=== PATIENT | female | born 2005 | race Hispanic/Latino ===

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

== ENCOUNTER 2024-02-23 15:37 | Emergency (ER) | payer MEDICAID, OTHER ==
[~2024-02-23] VITALS: Ht 167.6 cm; Wt 109.3 kg
[~2024-02-23 15:37] MED LIST: IBUP-1493 PO
[2024-02-23] MEDS: DiphenhydrAMINE HCL 50 MG/ML VIAL IV ONE (16:22)
[2024-02-23] MEDS: SOLU-MEDROL 125MG VIAL IVP ONE (16:22)
[2024-02-23] MEDS: FAMOTIDINE 20MG VIAL IV ONE (16:22)
[2024-02-23] MEDS: 0.9%NACL 1000ML 1,000 ML IV ONE (16:23)
[2024-02-23] MEDS ORDERED: FAMO-136 PO (17:08)
[2024-02-23] MEDS ORDERED: DIPH-1242 PO (17:08)
[2024-02-23] MEDS ORDERED: METH4TAB3 PO (17:08)
[2024-02-23] MEDS: KETOROLAC 30MG VIAL (30MG/ML) IVP ONE (17:14)
[2024-02-23 17:20] VITALS: BP 100/64; PULSE 95; RESP 20; O2SAT 98
== END 2024-02-23 17:31 | disposition home or self-care (01) ==
LOC: EDH 15:37
DX: L23.89 Allergic contact dermatitis due to other agents (principal); T63.441A Toxic effect of venom of bees, accidental (unintentional), initial encounter; Y92.89 Other specified places as the place of occurrence of the external cause
CPT/HCPCS: 99284; 96374; 96375; 96361; J1200; J3490; J7030; J2919; J1885

== ENCOUNTER 2024-04-04 22:30 | Emergency (ER) | payer OTHER ==
[~2024-04-04] VITALS: Ht 167.6 cm; Wt 111.6 kg
[~2024-04-04 22:30] MED LIST changes: +DIPH-1242 PO; +FAMO-136 PO; +METH4TAB3 PO
[2024-04-04 22:42] VITALS: BP 150/95; PULSE 86; RESP 18; O2SAT 99
[2024-04-04] MEDS: ACETAMINOPHEN 500 MG TABLET PO ONE (22:58)
[2024-04-04 23:02] LABS: BASOPHILS # (AUTO) 0.06 K/uL (0.00-0.20); BASOPHILS % (AUTO) 0.6 % (0.0-5.0); EOSINOPHILS # (AUTO) 0.07 K/uL (0.00-0.70); EOSINOPHILS % (AUTO) 0.7 % (0.0-8.0); HEMATOCRIT 43.8 % (36-48); IMMATURE GRANULOCYTE ABSOLUTE 0.05 K/uL (0-1); LYMPHOCYTES # (AUTO) 1.2 K/uL (1.0-4.8); LYMPHOCYTES % (AUTO) 11.8 % (21.0-51.0); MEAN CORPUSCULAR HEMOGLOBIN 29.9 pg (27.0-33.0); MEAN CORPUSCULAR HGB CONC 33.3 g/dL (32.0-36.0); MEAN CORPUSCULAR VOLUME 89.6 fL (80-100); MONOCYTES # (AUTO) 0.8 K/uL (0.1-1.0); MONOCYTES % (AUTO) 7.7 % (3.0-13.0); NEUTROPHILS # (AUTO) 8.1 K/uL (1.8-7.7); NEUTROPHILS % (AUTO) 78.7 % (40.0-77.0); PLATELET COUNT (AUTO) 285 K/uL (130-400); RED BLOOD CELL COUNT(AUTO) 4.89 MIL/uL (4.00-5.50); WHITE BLOOD COUNT (AUTO) 10.3 K/uL (4.8-10.8)
[2024-04-04 23:02] LABS: APPEARANCE,URINE CLEAR (CLEAR); BILIRUBIN,URINE NEGATIVE (NEGATIVE); COLOR,URINE LIGHT-YELLOW (YELLOW); GLUCOSE, URINE (UA) NEGATIVE (NEGATIVE); KETONES,URINE NEGATIVE (NEGATIVE); LEUKOCYTE ESTERASE ,URINE 25 Leu/uL (NEGATIVE); NITRATE,URINE NEGATIVE (NEGATIVE); OCCULT BLOOD,URINE NEGATIVE (NEGATIVE); PH,URINE 5.5 (5.0-8.0); PROTEIN,URINE NEGATIVE (NEGATIVE); UROBILINOGEN,URINE 0.2 mg/dL (0.2-1.0)
[2024-04-04 23:05] LABS: ADD UA MICROSCOPIC YES; HCG,QUALITATIVE URINE NEGATIVE (NEGATIVE)
[2024-04-04 23:07] LABS: MUCUS,URINE RARE LPF (None Seen); SQUAMOUS EPITHELIAL CELL,UR MOD /HPF (0-2)
[2024-04-04 23:10] LABS: CREATININE 0.8 mg/dL (0.5-1.0); POTASSIUM 3.8 mmol/L (3.5-5.1)
[2024-04-04 23:14] LABS: ALBUMIN 3.8 g/dL (3.5-5.0); BILIRUBIN,TOTAL 0.4 mg/dL (0.2-1.0); TOTAL PROTEIN, SERUM 7.3 g/dL (6.0-8.3)
[2024-04-04] MEDS ORDERED: PHEN-847 PO (23:26)
[2024-04-04] MEDS ORDERED: AMOX1TAB16 PO (23:26)
[2024-04-04] MEDS ORDERED: IBUP-2077 PO (23:26)
[2024-04-04] MEDS: AMOX/CLAV 875/125MG TAB PO ONE (23:42)
== END 2024-04-04 23:58 | disposition home or self-care (01) ==
LOC: EDH 22:30
DX: N30.01 Acute cystitis with hematuria (principal); Z79.899 Other long term (current) drug therapy; Z90.89 Acquired absence of other organs; Z98.890 Other specified postprocedural states
CPT/HCPCS: 36415; 80053; 81001; 81025; 83690; 85025; 87086

== ENCOUNTER 2024-04-24 01:53 | Emergency (ER) | payer SELFPAY ==
[~2024-04-24] VITALS: Ht 167.6 cm; Wt 99.8 kg
[~2024-04-24 01:53] MED LIST changes: +AMOX1TAB16 PO; +IBUP-2077 PO; +PHEN-847 PO
[2024-04-24 02:16] LABS: APPEARANCE,URINE CLEAR (CLEAR); BILIRUBIN,URINE NEGATIVE (NEGATIVE); COLOR,URINE LIGHT-YELLOW (YELLOW); GLUCOSE, URINE (UA) NEGATIVE (NEGATIVE); KETONES,URINE NEGATIVE (NEGATIVE); LEUKOCYTE ESTERASE ,URINE 25 Leu/uL (NEGATIVE); NITRATE,URINE NEGATIVE (NEGATIVE); OCCULT BLOOD,URINE NEGATIVE (NEGATIVE); PH,URINE 5.5 (5.0-8.0); PROTEIN,URINE NEGATIVE (NEGATIVE); UROBILINOGEN,URINE 0.2 mg/dL (0.2-1.0)
[2024-04-24 02:19] LABS: BASOPHILS # (AUTO) 0.04 K/uL (0.00-0.20); BASOPHILS % (AUTO) 0.3 % (0.0-5.0); EOSINOPHILS # (AUTO) 0.09 K/uL (0.00-0.70); EOSINOPHILS % (AUTO) 0.7 % (0.0-8.0); HEMATOCRIT 41.1 % (36-48); IMMATURE GRANULOCYTE ABSOLUTE 0.04 K/uL (0-1); LYMPHOCYTES # (AUTO) 3.3 K/uL (1.0-4.8); LYMPHOCYTES % (AUTO) 25.8 % (21.0-51.0); MEAN CORPUSCULAR HEMOGLOBIN 29.9 pg (27.0-33.0); MEAN CORPUSCULAR HGB CONC 33.8 g/dL (32.0-36.0); MEAN CORPUSCULAR VOLUME 88.4 fL (80-100); MONOCYTES # (AUTO) 0.7 K/uL (0.1-1.0); MONOCYTES % (AUTO) 5.7 % (3.0-13.0); NEUTROPHILS # (AUTO) 8.7 K/uL (1.8-7.7); NEUTROPHILS % (AUTO) 67.2 % (40.0-77.0); PLATELET COUNT (AUTO) 362 K/uL (130-400); RED BLOOD CELL COUNT(AUTO) 4.65 MIL/uL (4.00-5.50); WHITE BLOOD COUNT (AUTO) 12.9 K/uL (4.8-10.8)
[2024-04-24 02:21] LABS: ADD UA MICROSCOPIC YES
[2024-04-24 02:22] LABS: BACTERIA,URINE None Seen /HPF (None Seen); HCG,QUALITATIVE URINE NEGATIVE (NEGATIVE); SQUAMOUS EPITHELIAL CELL,UR Few /HPF (0-2)
[2024-04-24] MEDS: 0.9%NACL 1000ML 1,000 ML IV ONE (02:29)
[2024-04-24] MEDS: acetaMINOPHEN 500 MG TABLET PO ONE (02:30)
[2024-04-24 02:39] LABS: ALBUMIN 3.8 g/dL (3.5-5.0); BILIRUBIN,TOTAL 0.2 mg/dL (0.2-1.0); TOTAL PROTEIN, SERUM 7.5 g/dL (6.0-8.3)
[2024-04-24] MEDS: cefTRIAXone 1G VIAL IVPB ONE (03:23)
[2024-04-24 03:42] VITALS: BP 139/68; PULSE 73; RESP 16; O2SAT 98
== END 2024-04-24 03:54 | disposition home or self-care (01) ==
LOC: EDH 01:53
DX: O03.9 Complete or unspecified spontaneous abortion without complication (principal); R10.2 Pelvic and perineal pain; Z79.899 Other long term (current) drug therapy; Z3A.01 Less than 8 weeks gestation of pregnancy
CPT/HCPCS: 99283; 96374; 96361; 80053; 84702; 83690; 85025; 87086; 81001; 81025; 36415; J7030; J0696

== ENCOUNTER 2024-07-19 22:16 | Emergency (ER) | payer BC ==
[~2024-07-19] VITALS: Ht 167.6 cm; Wt 113.9 kg
[2024-07-19 23:55] LABS: BASOPHILS # (AUTO) 0.05 K/uL (0.00-0.20); BASOPHILS % (AUTO) 0.4 % (0.0-5.0); EOSINOPHILS % (AUTO) 0.9 % (0.0-8.0); HEMATOCRIT 44.1 % (36-48); IMMATURE GRANULOCYTE ABSOLUTE 0.04 K/uL (0-1); LYMPHOCYTES # (AUTO) 3.2 K/uL (1.0-4.8); LYMPHOCYTES % (AUTO) 27.7 % (21.0-51.0); MEAN CORPUSCULAR HEMOGLOBIN 29.9 pg (27.0-33.0); MEAN CORPUSCULAR HGB CONC 33.1 g/dL (32.0-36.0); MEAN CORPUSCULAR VOLUME 90.4 fL (80-100); MONOCYTES # (AUTO) 0.7 K/uL (0.1-1.0); MONOCYTES % (AUTO) 5.9 % (3.0-13.0); NEUTROPHILS # (AUTO) 7.5 K/uL (1.8-7.7); NEUTROPHILS % (AUTO) 64.8 % (40.0-77.0); PLATELET COUNT (AUTO) 325 K/uL (130-400); RED BLOOD CELL COUNT(AUTO) 4.88 MIL/uL (4.00-5.50); RED CELL DISTRIBUTION WIDTH 11.9 % (11.0-15.5); WHITE BLOOD COUNT (AUTO) 11.5 K/uL (4.8-10.8)
[2024-07-20 00:07] LABS: CREATININE 0.7 mg/dL (0.5-1.0); POTASSIUM 4.2 mmol/L (3.5-5.1)
[2024-07-20 00:11] LABS: BILIRUBIN,DIRECT 0.1 mg/dL (0.0-0.3); BILIRUBIN,TOTAL 0.3 mg/dL (0.2-1.0); TOTAL PROTEIN, SERUM 7.5 g/dL (6.0-8.3)
[2024-07-20] MEDS: ondanSETRON 4MG INJ IVP ONE (00:18)
[2024-07-20] MEDS: morPHINE 4 MG SYG IVP ONE (00:19)
--- NOTE | 2024-07-20 00:53 | ERN ---
ED Note History of Present Illness Stated Complaint: C/O ABD PAIN WITH RT EAR PAIN Chief Complaint: Multiple Complaints Time Seen by MD: 22:53 Time Seen by Midlevel: 22:53 Dictation: The patient is a 19-year-old female with no past medical history who presents to the emergency department with complaints of right ear pain for two days. Denies any fevers or drainage. Patient also reports left upper abdominal pain associated with nausea onset on and off for 3 weeks. Denies any vomiting, constipation, diarrhea. Allergies: Coded Allergies: No Known Drug Allergies (Unverified Allergy, Unknown, 02/26/19) Home Meds Active Scripts Ondansetron (Ondansetron Odt) 4 Mg Tab.rapdis, 4 MG PO Q6HPRN PRN for nausea, #1 6 TAB 0 Refills Prov:SEQUEIRAMARLENY [facility] 07/20/24 Amoxicillin/Potassium Clav (Amox Tr-K Clv 875-125 mg Tab) 875 Mg-125 Mg Tablet, 1 TAB PO BID for 5 Days, #10 TAB 0 Refills Prov:LILLIAN SEQUEIRAP 07/20/24 Ibuprofen (Ibuprofen 800 mg Tab) 800 Mg Tab, 800 MG PO Q8H PRN for fever or pain, #30 TAB 0 Refills Prov:NITA MERINO NP 04/04/24 Phenazopyridine HCl (Pyridium) 200 Mg Tab, 200 MG PO TIDPC, #9 TAB TAKE WITH FOOD TO PREVENT STOMACH UPSET. Prov:NITA MERINO NP 04/04/24 Amoxicillin/Potassium Clav (Amox Tr-K Clv 875-125 mg Tab) 875 Mg-125 Mg Tablet, 1 EACH PO BID for 5 Days, #10 TAB 0 Refills Prov:NITA MERINO NP 04/04/24 Methylprednisolone (Medrol) 4 Mg Tab.ds.pk, 4 MG PO AD, #1 PACK Prov:EDDIE VILCHIS 02/23/24 Famotidine (Pepcid) 20 Mg Tablet, 20 MG PO DAILY for 7 Days, #7 TAB Prov:EDDIE VILCHIS 02/23/24 Diphenhydramine HCl (Benadryl) 25 Mg Cap, 25 MG PO DAILY for 7 Days, #7 CAP Prov:EDDIE VILCHIS 02/23/24 Ibuprofen (Motrin/Advil) 800 Mg Tab, 800 MG PO TID for fever, #30 TAB Prov:MENARAY Macedo MD 03/23/22 Past Medical History Past Medical History: No Pertinent History Surgical History: None Family History: Negative Social History: Negative LMP: Jun 08, 2024 RN Note Reviewed/Agreed w/PFSH: Yes Review of System Dictation Constitutional: Negative for fever,chills, and weight loss Eyes: Negative for injury, pain,redness, and discharge ENT: Negative for injury,pain or swelling. Positive for right ear pain Cardiovascular: Negative for chest pain, palpitations, and edema Respiratory: Negative for shortness of breath, cough, and wheezing, Abdomen/GI: Negative for vomiting, diarrhea, and constipation. Positive for abdominal pain, nausea Back: Negative for injury and pain : Negative for injury, bleeding and discharge MS/Extremity: Negative for injury and deformity Skin: Negative for rash, and discoloration Neuro: Negative for headache, weakness, numbness, tingling, and seizure Psych: Negative for suicide ideation, homicidal ideation, and hallucinations Initial Vital Sign VS Vital Signs Date Time Temp Pulse Resp B/P (MAP) Pulse Ox O2 Delivery O2 Flow Rate FiO2 07/19/24 22:18 97.2 76 20 125/81 99 Room Air 07/20/24 00:04 0 21 Physical Exam Dictation Vital Signs reviewed General Appearance: Alert, oriented x 3, no acute distress, well developed, nourished. Head and Face: non-traumatic. Eyes: PERRL, pink conjunctivas, eyelid no trauma, anterior chamber with arcus senilis. Ears: Pinnas intact and no signs of trauma or erythema ear canals clear and no discharge right tympanic membrane with slight erythema, no drainage fluid seen in the middle ear Nose: No discharge, no bleeding. Oropharynx: Mouth normal, tongue pink. pharynx clear,no erythema, tonsils no exudates, no abscesses noted, mucous membrane moist Neck: Supple, non-tender, no thyromegaly, no masses, no JVD, no bruits Breast:Deferred Chest:No tenderness, no crepitus, no paradoxical movement, no retractions Lungs:Clear, well-ventilated, symmetric, no rales, no wheezing, no rhonchi, no stridor, good breath sounds bilaterally Heart: Regular rate, regular rhythm, no murmur, no gallops Vascular: no peripheral edema, Abdomen: Soft, positive bowel sounds, nondistended, no guarding, nontender, no rebound, no masses no hepatomegaly, no splenomegaly, no Guillermo's sign, no hernias. Rectal: Deferred Genital: Deferred Neurological: Normal speech, motor function intact, sensory function intact Musculoskeletal: Neck nontender, full range of motion, back nontender, full range of motion, Extremities: nontender, full range of motion Skin: Color pink, dry, no turgor, no rash, no lacerations, no abrasions, no contusions. Lymphatic: Deferred Results (Laboratory/Radiology) Laboratory/Radiology Laboratory Tests Test 07/19/24 23:48 07/20/24 00:26 White Blood Count 11.5 K/uL (4.8-10.8) H Red Blood Count 4.88 MIL/uL (4.00-5.50) Hemoglobin 14.6 g/dL (12.0-16.0) Hematocrit 44.1 % (36-48) Mean Corpuscular Volume 90.4 fL (80-100) Mean Corpuscular Hemoglobin 29.9 pg (27.0-33.0) Mean Corpuscular Hemoglobin Concent 33.1 g/dL (32.0-36.0) Red Cell Distribution Width 11.9 % (11.0-15.5) Platelet Count 325 K/uL (130-400) Mean Platelet Volume 10.0 fL (7.5-10.5) Immature Granulocyte % (Auto) 0.3 % (0-1) Neutrophils (%) (Auto) 64.8 % (40.0-77.0) Lymphocytes (%) (Auto) 27.7 % (21.0-51.0) Monocytes (%) (Auto) 5.9 % (3.0-13.0) Eosinophils (%) (Auto) 0.9 % (0.0-8.0) Basophils (%) (Auto) 0.4 % (0.0-5.0) Neutrophils # (Auto) 7.5 K/uL (1.8-7.7) Lymphocytes # (Auto) 3.2 K/uL (1.0-4.8) Monocytes # (Auto) 0.7 K/uL (0.1-1.0) Eosinophils # (Auto) 0.10 K/uL (0.00-0.70) Basophils # (Auto) 0.05 K/uL (0.00-0.20) Absolute Immature Granulocyte (auto 0.04 K/uL (0-1) Nucleated Red Blood Cells 0.0 % (0.0-0.19) Sodium Level 137 mmol/L (136-145) Potassium Level 4.2 mmol/L (3.5-5.1) Chloride Level 100 mmol/L (101-111) L Carbon Dioxide Level 33 mmol/L (21-32) H Blood Urea Nitrogen 11 mg/dL (7-18) Creatinine 0.7 mg/dL (0.5-1.0) Glomerular Filtration Rate Calc 127 mL/min (>90) Random Glucose 83 mg/dL (70-105) Total Calcium 9.2 mg/dL (8.5-10.1) Total Bilirubin 0.3 mg/dL (0.2-1.0) Direct Bilirubin 0.1 mg/dL (0.0-0.3) Aspartate Amino Transf (AST/SGOT) 19 U/L (10-37) Alanine Aminotransferase (ALT/SGPT) 43 U/L (12-78) Alkaline Phosphatase 96 U/L (50-136) Total Protein 7.5 g/dL (6.0-8.3) Albumin 4.0 g/dL (3.5-5.0) Lipase 31 U/L (16-77) Serum Test, Qualitative NEGATIVE (NEGATIVE) Urine Color YELLOW (YELLOW) Urine Appearance CLOUDY (CLEAR) H Urine pH 5.5 (5.0-8.0) Urine Specific [place] 1.031 (1.001-1.031) Urine Protein 10 mg/dL (NEGATIVE) H Urine Glucose (UA) NEGATIVE mg/dL (NEGATIVE) Urine Ketones NEGATIVE mg/dL (NEGATIVE) Urine Occult Blood NEGATIVE (NEGATIVE) Urine Nitrate NEGATIVE (NEGATIVE) Urine Bilirubin NEGATIVE mg/dL (NEGATIVE) Urine Urobilinogen 0.2 mg/dL (0.2-1.0) Urine Leukocyte Esterase 75 Ellen/uL (NEGATIVE) H Urine RBC 2-5 /HPF (0-1) H Urine WBC 11-25 /HPF (0-1) H Urine Squamous Epithelial Cells MOD /HPF (0-2) Urine Bacteria FEW /HPF (None Seen) REASON: left upper abd pain, nausea ORDERING PHYSICIAN: LILLIAN SEQUEIRA PROCEDURE: ABD PEL W - CT ABDOMEN/PELVIS W/CONTRAST CT ABDOMEN/PELVIS W/CONTRAST HISTORY: Left upper abdominal pain COMPARISON: None TECHNIQUE: Multiple sequential axial images of the abdomen and pelvis were obtained from the dome of the diaphragm through symphysis pubis. Patient was given 100 cc of Isovue through intravenous route. Oral contrast was not given. FINDINGS: No pleural effusion is seen bilaterally. There is no evidence of parenchymal disease or pulmonary nodule of the visualized lower lungs. Degenerative changes of the thoracolumbar spine are present. The heart is not enlarged. There is sludge material versus gallstones in the gallbladder neck. The liver, spleen, adrenal glands and pancreas are unremarkable. There is no evidence of hydronephrosis bilaterally. No evidence of renal stone is seen. Fecal material is seen in the colon. There are normal size retroperitoneal and mesenteric lymph nodes. No ascites is seen. No CT evidence of acute appendicitis is seen. Pelvic sidewalls are symmetric bilaterally. Bladder is poorly distended. IMPRESSION: 1. Sludge material versus gallstones in the gallbladder neck. CT was performed with one or more following dose reduction techniques: automated exposure control, adjustment of the mA and kv according to patient's size, or use of a iterative reconstruction technique. Labs Reviewed?: Yes ED Course ED Course Orders Procedure Category Date Status Time Cbc With Differential LAB 07/19/24 Complete 23:36 Urinalysis Profile LAB 07/19/24 Complete 23:36 Morphine 4mg Syg PHA 07/20/24 Complete (Morphine 4mg Syg) 00:00 Ondansetron 4mg Inj PHA 07/20/24 Complete (Zofran 4mg Inj) 00:00 Lipase LAB 07/19/24 Complete 23:36 Basic Metabolic Panel LAB 07/19/24 Complete 23:36 Hepatic Function Panel LAB 07/19/24 Complete 23:36 Testing, LAB 07/20/24 Complete Serum Hcg 00:48 Ct Abdomen/Pelvis CT 07/20/24 Resulted W/Contrast 01:08 Culture Urine MICKI 07/20/24 In Process 01:11 Iohexol (Omnipaque) PHA 07/20/24 Complete 01:43 Ceftriaxone 1g Vial PHA 07/20/24 Complete (Rocephine 1g Inj) 02:30 Current Medications Medications (Trade) Dose Ordered Sig/Karissa Route PRN Reason Start Time Stop Time Status Last Admin Dose Admin Ceftriaxone Sodium (ROCEphine 1G INJ) 1 gm ONCE ONCE IVPB 07/20/24 02:30 07/20/24 02:31 DC 07/20/24 02:38 Iohexol (Omnipaque) 35,000 mg STK-MED ONCE IV 07/20/24 01:43 07/20/24 01:43 DC Morphine Sulfate (morPHINE 4MG SYG) 4 mg ONCE ONCE IVP 07/20/24 00:00 07/20/24 00:01 DC Ondansetron HCl (zoFRAN 4MG INJ) 4 mg ONCE ONCE IVP 07/20/24 00:00 07/20/24 00:01 DC 07/20/24 00:18 Vital Signs Date Time Temp Pulse Resp B/P (MAP) Pulse Ox O2 Delivery O2 Flow Rate FiO2 07/20/24 02:49 98.1 75 16 107/63 99 Room Air* 0 21 07/20/24 00:04 73 18 111/68 100 Room Air* 0 21 07/19/24 22:18 97.2 76 20 125/81 99 Room Air Medical Decision Making MDM The patient is a 19-year-old female with no past medical history who presents to the emergency department with complaints of right ear pain for two days. Denies any fevers or drainage. Denies any molar pain, Patient also reports left upper abdominal pain associated with nausea onset on and off for 3 weeks. Denies any vomiting, constipation, diarrhea. CBC showed mild leukocytosis, no anemia, chemistry showed mild hypochloremia, negative , urinalysis showed mild leukocyte esterase treated with antibiotics. CT showed possible gallstones, patient with no tenderness to right lower abd. Will be treated for uti and otitis media. labs and imagine discussed with patient who agrees with discharge. Differential diagnosis: Gastritis, cholecystitis, electrolyte imbalance, pancreatitis, otitis media, otitis externa Need for hospitalization: Patient does not meet criteria for hospitalization. There are no social concerns with this patient. DX & DISP Disposition: Discharge Departure Impression: Primary Impression: Abdominal pain Additional Impressions: Nausea, Otitis media, UTI (urinary tract infection), Gallstones Condition: Stable Scripts Ondansetron (Ondansetron Odt) 4 Mg Tab.rapdis 4 MG PO Q6HPRN PRN for nausea, #16 TAB 0 Refills Prov: SEQUEIRA,LILLIAN [employer]CH[employer]IC[employer] 07/20/24 Amoxicillin/Potassium Clav (Amox Tr-K Clv 875-125 mg Tab) 875 Mg-125 Mg Tablet 1 TAB PO BID for 5 Days, #10 TAB 0 Refills Prov: FABBYLILLIAN BARBOZA 07/20/24 Additional Instructions: please follow up with pcp in 1-3 days. you have a uti and an ear infection which will be treated with antibiotics. your CT scan showed gallstones, please avoid any fatty foods or saturated fat. Please return if symptoms worsen . Referrals: FEI EDWARDS (PCP) Time of Disposition: 03:05 I have reviewed the case, and I agree with, Diagnosis and Plan LILLIAN SEQUEIRA Jul 20, 2024 00:53
[2024-07-20 01:03] LABS: APPEARANCE,URINE CLOUDY (CLEAR); BILIRUBIN,URINE NEGATIVE (NEGATIVE); COLOR,URINE YELLOW (YELLOW); GLUCOSE, URINE (UA) NEGATIVE (NEGATIVE); KETONES,URINE NEGATIVE (NEGATIVE); LEUKOCYTE ESTERASE ,URINE 75 Leu/uL (NEGATIVE); NITRATE,URINE NEGATIVE (NEGATIVE); OCCULT BLOOD,URINE NEGATIVE (NEGATIVE); PH,URINE 5.5 (5.0-8.0); PROTEIN,URINE 10 mg/dL (NEGATIVE); UROBILINOGEN,URINE 0.2 mg/dL (0.2-1.0)
[2024-07-20 01:10] LABS: ADD UA MICROSCOPIC YES
[2024-07-20 01:13] LABS: BACTERIA,URINE FEW /HPF (None Seen); MUCUS,URINE RARE LPF (None Seen); SQUAMOUS EPITHELIAL CELL,UR MOD /HPF (0-2)
[2024-07-20] MEDS ORDERED: IOHEXOL 350 MG/ML 100ML INFUS..BTL IV ONE (01:43)
[2024-07-20] MEDS: cefTRIAXone 1G VIAL IVPB ONE (02:38)
[2024-07-20 02:49] VITALS: BP 107/63; PULSE 75; RESP 16; TEMP 98; O2SAT 99
[2024-07-20] MEDS ORDERED: ONDA-243 PO (03:09)
[2024-07-20] MEDS ORDERED: AMOX1TAB16 PO (03:09)
--- NOTE | 2024-07-20 09:13 | HMCIMG ---
CT ABDOMEN/PELVIS W/CONTRAST HISTORY: Left upper abdominal pain COMPARISON: None TECHNIQUE: Multiple sequential axial images of the abdomen and pelvis were obtained from the dome of the diaphragm through symphysis pubis. Patient was given 100 cc of Isovue through intravenous route. Oral contrast was not given. FINDINGS: No pleural effusion is seen bilaterally. There is no evidence of parenchymal disease or pulmonary nodule of the visualized lower lungs. Degenerative changes of the thoracolumbar spine are present. The heart is not enlarged. There is sludge material versus gallstones in the gallbladder neck. The liver, spleen, adrenal glands and pancreas are unremarkable. There is no evidence of hydronephrosis bilaterally. No evidence of renal stone is seen. Fecal material is seen in the colon. There are normal size retroperitoneal and mesenteric lymph nodes. No ascites is seen. No CT evidence of acute appendicitis is seen. Pelvic sidewalls are symmetric bilaterally. Bladder is poorly distended. IMPRESSION: 1. Sludge material versus gallstones in the gallbladder neck. CT was performed with one or more following dose reduction techniques: automated exposure control, adjustment of the mA and kv according to patient's size, or use of a iterative reconstruction technique.
== END 2024-07-20 03:22 | disposition home or self-care (01) ==
LOC: EDH 22:16
DX: N39.0 Urinary tract infection, site not specified (principal); H66.91 Otitis media, unspecified, right ear; K80.20 Calculus of gallbladder without cholecystitis without obstruction; Z79.1 Long term (current) use of non-steroidal anti-inflammatories (NSAID); Z79.899 Other long term (current) drug therapy
CPT/HCPCS: 99284; 80076; 80048; 84703; 83690; 85025; 87086; 81001; 36415; 74177; 96365; 96375; J0696; J2405; Q9967; J2270

== ENCOUNTER 2024-09-09 05:36 | Emergency (ER) | payer BC ==
[~2024-09-09] VITALS: Ht 167.6 cm; Wt 116.1 kg
[~2024-09-09 05:36] MED LIST changes: +ONDA-243 PO
--- NOTE | 2024-09-09 05:50 | ERN ---
General Chief Complaint: Earache Stated Complaint: RT EARACHE Time Seen by MD: 05:45 Source: patient History of Present Illness Initial Comments Patient is a 19-year-old female coming in to be evaluated for right ear pain. Per patient this started yesterday has been getting worse. No fever or chills no nausea or vomiting. Patient did state that the pain was so severe she has a come in to be evaluated. Allergies: Coded Allergies: No Known Drug Allergies (Unverified Allergy, Unknown, 02/26/19) Home Meds Active Scripts Ondansetron (Ondansetron Odt) 4 Mg Tab.rapdis, 4 MG PO Q6HPRN PRN for nausea, #16 TAB 0 Refills Prov:LILLIAN SEQUEIRA [facility] 07/20/24 Amoxicillin/Potassium Clav (Amox Tr-K Clv 875-125 mg Tab) 875 Mg-125 Mg Tablet, 1 TAB PO BID for 5 Days, #10 TAB 0 Refills Prov:LILLIAN SEQUEIRA 07/20/24 Ibuprofen (Ibuprofen 800 mg Tab) 800 Mg Tab, 800 MG PO Q8H PRN for fever or pain, #30 TAB 0 Refills Prov:NITA MERINO NP 04/04/24 Phenazopyridine HCl (Pyridium) 200 Mg Tab, 200 MG PO TIDPC, #9 TAB TAKE WITH FOOD TO PREVENT STOMACH UPSET. Prov:NITA MERINO NP 04/04/24 Amoxicillin/Potassium Clav (Amox Tr-K Clv 875-125 mg Tab) 875 Mg-125 Mg Tablet, 1 EACH PO BID for 5 Days, #10 TAB 0 Refills Prov:NITA MERINO NP 04/04/24 Methylprednisolone (Medrol) 4 Mg Tab.ds.pk, 4 MG PO AD, #1 PACK Prov:EDDIE VILCHIS 02/23/24 Famotidine (Pepcid) 20 Mg Tablet, 20 MG PO DAILY for 7 Days, #7 TAB Prov:EDDIE VILCHIS 02/23/24 Diphenhydramine HCl (Benadryl) 25 Mg Cap, 25 MG PO DAILY for 7 Days, #7 CAP Prov:EDDIE VILCHIS 02/23/24 Ibuprofen (Motrin/Advil) 800 Mg Tab, 800 MG PO TID for fever, #30 TAB Prov:RAY SAN MD 03/23/22 Past Medical History Past Medical History: No Pertinent History Past Surgical History: Tonsillectomy Family History Family History: Negative Social History Social History: Negative ROS Dictation CONSTITUTIONAL: No chills, no fever, no weakness, no diaphoresis, no malaise. HEAD/FACE: No signs of trauma. EENT: No eye pain, no blurred vision, no tearing, no double vision, ear pain, no ear discharge, no nose pain, no nasal congestion, no throat pain, no throat swelling, no mouth pain. RESPIRATORY: No cough, no orthopnea, no SOB, no stridor, no wheezing. CARDIOVASCULAR: No chest pain, no edema, no palpitations, no syncope. GASTROINTESTINAL/ABDOMINAL: No abdominal pain, no constipation, no diarrhea, no nausea, no vomiting. GENITOURINARY: No abnormal discharge, no dysuria, no frequent urination, no hematuria. No complaints of pain in the genitals. MUSCULOSKELETAL: No back pain, no gout, no joint pain, no joint swelling, no muscle pain, no muscle stiffness, no neck pain. INTEGUMENTARY: No change in color, no change in hair/nails, no dryness, no lesion, no lumps, no rash. NEUROLOGICAL/PSYCH: No anxiety, not depressed, no emotional problem, no head ache, no numbness, no pre-existing deficit, no history of seizures, no tremors, no weakness. HEMATOLOGIC/LYMPHATIC: Not anemic, no history of blood clots, no apparent bleeding, no bruising, glands not swollen. All Systems Negative, Except as Noted. Physical Exam Physical Exam Dictation VITAL SIGNS: Reviewed. GENERAL APPEARANCE: Alert, oriented x3, no acute distress, obese. HEAD AND FACE: Non-traumatic. EYES: PERRL, pink conjunctivas, eyelid no trauma, anterior chamber clear. EARS: Pinnas intact and no signs of trauma or erythema. Ear canals clear and no discharge. TMs erythema. External ear canal swelling and erythema NOSE: No discharge, no bleeding. OROPHARYNX: Mouth normal, teeth no caries, tongue pink. Pharynx clear, no erythema. Tonsils no exudates, no abscesses noted. Mucous membrane moist. NECK: Supple, non-tender, no thyromegaly, no masses, no JVD, no bruits. BREAST: Deferred. CHEST: No tenderness, no crepitus, no paradoxical movement, no retractions. LUNGS: Clear, well-ventilated, symmetric, no rales, no wheezing, no rhonchi, no stridor, good breath sounds bilaterally. HEART: Regular rate, regular rhythm, no murmur, no gallops. VASCULAR: No peripheral edema. ABDOMEN: Soft, positive bowel sounds, nondistended, no guarding, nontender, no rebound, no masses no hepatomegaly, no splenomegaly, no Guillermo's sign, no hernias. RECTAL: Deferred. GENITAL: Deferred. NEUROLOGICAL: Normal speech, gross motor function intact, gross sensory function intact. MUSCULOSKELETAL: Neck nontender, full range of motion, back nontender, full range of motion. EXTREMITIES: Nontender, full range of motion. SKIN: Color pink, dry, no turgor, no rash, no lacerations, no abrasions, no contusions. LYMPHATICS: Deferred. Results Laboratory and Microbiology Labs Reviewed?: Yes MDM MDM: Differential diagnosis: Otitis externa, otitis media, Patient is a 19-year-old female coming in to be evaluated for right ear pain. On physical exam there is erythema and swelling of the external ear as well as congestion of the tympanic membrane. . Patient will be discharged with a diagnosis of otitis externa with a otitis media. Ear wick in place. ED Course Orders Procedure Category Date Status Time Neomycin/Polymyx/Hc PHA 09/09/24 Complete Otic Susp (Cortispor 05:47 Acetaminophen 500mg PHA 09/09/24 Complete Tab (Tylenol 500mg T 06:30 Current Medications Medications (Trade) Dose Ordered Sig/Karissa Route PRN Reason Start Time Stop Time Status Last Admin Dose Admin Acetaminophen (TYLenol 500MG TAB) 500 mg ONCE ONCE PO 09/09/24 06:30 09/09/24 06:31 DC 09/09/24 06:24 Neomycin/ Polymyxin/ Hydrocortisone (Cortisporin Otic) 2 drop ONCE STAT AD 09/09/24 05:47 09/09/24 05:48 DC 09/09/24 05:56 Vital Signs Date Time Temp Pulse Resp B/P (MAP) Pulse Ox O2 Delivery O2 Flow Rate FiO2 09/09/24 05:50 85 16 106/62 99 Room Air* 0 21 09/09/24 05:38 97.0 93 16 137/85 98 Room Air 0 DX & DISP Disposition: Discharge Departure Impression: Primary Impression: Otitis media Additional Impression: Otitis externa Condition: Stable Additional Instructions: FOLLOW-UP WITH PRIMARY CARE PROVIDER IN 1 TO 2 DAYS. TAKE MEDICATIONS DIRECTED HERE IN THE EMERGENCY ROOM. OKAY TO CONTINUE HOME MEDICATIONS UNLESS OTHERWISE DISCUSSED DURING YOUR VISIT IN THE EMERGENCY ROOM TODAY. RETURN TO YOUR NEAREST EMERGENCY ROOM IF SYMPTOMS WORSEN OR IF THERE IS NO IMPROVEMENT. CALL 911 IF YOU NEED IMMEDIATE ASSISTANCE. TAKE TYLENOL [id number] NEEDED AND IF NO CONTRAINDICATIONS ARE PRESENT. INCREASE ORAL HYDRATION. A WOUND CULTURE OR URINE CULTURE WAS ORDERED HERE IN THE EMERGENCY ROOM DEPARTMENT PLEASE FOLLOW-UP WITH PRIMARY CARE PROVIDER AND ADVISE THEM TO GET REPEAT PORTS FROM OUR FACILITY. IF YOU HAD ANY LAMBERT WRAP/SPLINTS THAT WERE APPLIED HERE, PLEASE DO NOT REMOVE THEM UNTIL YOU SEE YOUR PRIMARY CARE OR SPECIALTY. Referrals: Referrals: FEI EDWARDS (PCP) Time of Disposition: 06:48 IRMA JALLOH MD Sep 09, 2024 05:50
[2024-09-09] MEDS: NEOMYCIN/POLYMYXIN/HC OTIC SUSP 10ML BOTTLE AD STA (05:56)
[2024-09-09] MEDS: acetaMINOPHEN 500 MG TABLET PO ONE (06:24)
[2024-09-09 06:47] VITALS: BP 109/65; PULSE 82; RESP 16; TEMP 97.3; O2SAT 98
== END 2024-09-09 06:53 | disposition home or self-care (01) ==
LOC: EDH 05:36
DX: H66.91 Otitis media, unspecified, right ear (principal); H60.91 Unspecified otitis externa, right ear; Z79.1 Long term (current) use of non-steroidal anti-inflammatories (NSAID); Z90.89 Acquired absence of other organs
CPT/HCPCS: 99282

== ENCOUNTER 2024-09-10 18:58 | Emergency (ER) | payer BC ==
[~2024-09-10] VITALS: Ht 167.6 cm; Wt 113.4 kg
[2024-09-10 19:02] VITALS: BP 124/76; PULSE 85; RESP 16; TEMP 98
--- NOTE | 2024-09-10 19:05 | NUR ---
UA CUP PROVIDED
--- NOTE | 2024-09-10 20:30 | NUR ---
UA COLLECTED AND SENT
--- NOTE | 2024-09-10 23:40 | NUR ---
PT CALLED, NO ANSWER. NOT IN LOBBY
--- NOTE | 2024-09-10 23:47 | NUR ---
PT CALLED. NOT IN LOBBY. DID NOT COMMUNICATE DESIRE TO LEAVE
--- NOTE | 2024-09-11 00:28 | NUR ---
PT NOT IN LOBBY OR MAIN ER, [facility] DOES NOT HAVE PT IN [facility].
== END 2024-09-11 00:30 | disposition left against medical advice (07) ==
LOC: EDH 18:58
DX: H92.09 Otalgia, unspecified ear (principal); Z53.21 Procedure and treatment not carried out due to patient leaving prior to being seen by health care provider

== ENCOUNTER 2025-05-30 15:38 | Emergency (ER) | payer SELFPAY ==
[~2025-05-30] VITALS: Ht 167.6 cm; Wt 68.5 kg
--- NOTE | 2025-05-30 15:47 | ERN ---
ED Note History of Present Illness Stated Complaint: ABD PAIN Chief Complaint: Abdominal Pain Time Seen by MD: 15:41 Dictation: PATIENT IS A 19-YEAR-OLD FEMALE COMING IN TODAY WERE LOWER ABDOMINAL PAIN WITHOUT NAUSEA VOMITING FEVER CHILLS FOR THE LAST TWO DAYS. SHE STATES OCCASIONALLY RUNS TO HER BACK. NO PRIMARY CARE DOCTOR STATES HER LAST MENSTRUAL PERIOD WAS TWO DAYS AGO. NO VAGINAL BLEEDING. Allergies: Coded Allergies: No Known Drug Allergies (Unverified Allergy, Unknown, 02/26/19) Home Meds Active Scripts Ondansetron (Ondansetron Odt) 4 Mg Tab.rapdis, 4 MG PO Q6HPRN PRN for nausea, #16 TAB 0 Refills Prov:LILLIAN SEQUEIRA [facility] 07/20/24 Amoxicillin/Potassium Clav (Amox Tr-K Clv 875-125 mg Tab) 875 Mg-125 Mg Tablet, 1 TAB PO BID for 5 Days, #10 TAB 0 Refills Prov:LILLIAN SEQUEIRA [employer] 07/20/24 Ibuprofen (Ibuprofen 800 mg Tab) 800 Mg Tab, 800 MG PO Q8H PRN for fever or pain, #30 TAB 0 Refills Prov:NITA EMRINO NP 04/04/24 Phenazopyridine HCl (Pyridium) 200 Mg Tab, 200 MG PO TIDPC, #9 TAB TAKE WITH FOOD TO PREVENT STOMACH UPSET. Prov:NITA MERINO NP 04/04/24 Amoxicillin/Potassium Clav (Amox Tr-K Clv 875-125 mg Tab) 875 Mg-125 Mg Tablet, 1 EACH PO BID for 5 Days, #10 TAB 0 Refills Prov:NITA MERINO NP 04/04/24 Methylprednisolone (Medrol) 4 Mg Tab.ds.pk, 4 MG PO AD, #1 PACK Prov:EDDIE VILCHIS 02/23/24 Famotidine (Pepcid) 20 Mg Tablet, 20 MG PO DAILY for 7 Days, #7 TAB Prov:EDDIE VILCHIS 02/23/24 Diphenhydramine HCl (Benadryl) 25 Mg Cap, 25 MG PO DAILY for 7 Days, #7 CAP Prov:EDDIE VILCHIS 02/23/24 Ibuprofen (Motrin/Advil) 800 Mg Tab, 800 MG PO TID for fever, #30 TAB Prov:RAY SAN MD 03/23/22 Past Medical History Past Medical History: No Pertinent History Surgical History: Tonsillectomy, None Family History: Negative Social History: Negative LMP: May 28, 2025 : 0 RN Note Reviewed/Agreed w/PFSH: Yes Review of System Dictation CONSTITUTIONAL: NEGATIVE EXCEPT FOR HPI HEAD/FACE: NEGATIVE EXCEPT FOR HPI EENT: NEGATIVE EXCEPT FOR HPI RESPIRATORY: NEGATIVE EXCEPT FOR HPI GASTROINTESTINAL/ABDOMINAL: NEGATIVE EXCEPT FOR HPI LOWER ABDOMINAL PAIN THAT RADIATES TO BACK GENITOURINARY: NEGATIVE EXCEPT FOR HPI MUSCULOSKELETAL: NEGATIVE EXCEPT FOR HPI INTEGUMENTARY: NEGATIVE EXCEPT FOR HPI NEUROLOGICAL/PSYCH: NEGATIVE EXCEPT FOR HPI HEMATOLOGIC/LYMPHATIC: NEGATIVE EXCEPT FOR HPI ALL SYSTEMS NEGATIVE, EXCEPT NOTED ABOVE. 13 POINT REVIEW OF SYSTEMS ASSESSED AND ALL NEGATIVE EXCEPT FOR ABOVE. Initial Vital Sign VS Vital Signs Date Time Temp Pulse Resp B/P (MAP) Pulse Ox O2 Delivery O2 Flow Rate FiO2 05/30/25 15:41 97.9 98 18 131/71 97 Room Air 0 Physical Exam Dictation VITAL SIGNS REVIEWED GENERAL APPEARANCE: ALERT, ORIENTED X 3, MILD ACUTE DISTRESS, WELL DEVELOPED, NOURISHED. HEAD AND FACE: NON-TRAUMATIC. EYES: PERRL, PINK CONJUNCTIVAS, EYELID NO TRAUMA, ANTERIOR CHAMBER WITH ARCUS SENILIS. EARS: PINNAS INTACT AND NO SIGNS OF TRAUMA OR ERYTHEMA EAR CANALS CLEAR AND NO DISCHARGE TM NO ERYTHEMA NOSE: NO DISCHARGE, NO BLEEDING. OROPHARYNX: MOUTH NORMAL, TONGUE PINK, PHARYNX CLEAR,NO ERYTHEMA, TONSILS NO EXUDATES, NO ABSCESSES NOTED, MUCOUS MEMBRANE MOIST NECK: SUPPLE, NON-TENDER, NO THYROMEGALY, NO MASSES, NO JVD, NO BRUITS BREAST:DEFERRED CHEST:NO TENDERNESS, NO CREPITUS, NO PARADOXICAL MOVEMENT, NO RETRACTIONS LUNGS:CLEAR, WELL-VENTILATED, SYMMETRIC, NO RALES, NO WHEEZING, NO RHONCHI, NO STRIDOR, GOOD BREATH SOUNDS BILATERALLY HEART: REGULAR RATE, REGULAR RHYTHM, NO MURMUR, NO GALLOPS VASCULAR: NO PERIPHERAL EDEMA, ABDOMEN: SOFT, POSITIVE BOWEL SOUNDS, NONDISTENDED, NO GUARDING, MILD DIFFUSE LOWER ABDOMINAL AND PELVIC TENDERNESS WITH PALPATION. NEGATIVE CVAT BILATERALLY RECTAL: DEFERRED GENITAL: DEFERRED NEUROLOGICAL: NORMAL SPEECH, MOTOR FUNCTION INTACT, SENSORY FUNCTION INTACT MUSCULOSKELETAL: NECK NONTENDER, FULL RANGE OF MOTION, BACK NONTENDER, FULL RANGE OF MOTION, EXTREMITIES: NONTENDER, FULL RANGE OF MOTION SKIN: COLOR PINK, DRY, NO TURGOR, NO RASH, NO LACERATIONS, NO ABRASIONS, NO CONTUSIONS. LYMPHATIC: DEFERRED Results (Laboratory/Radiology) Laboratory/Radiology Laboratory Tests Test 05/30/25 16:15 05/30/25 16:50 White Blood Count 16.4 K/uL (4.8-10.8) H Red Blood Count 4.86 MIL/uL (4.00-5.50) Hemoglobin 14.5 g/dL (12.0-16.0) Hematocrit 43.5 % (36-48) Mean Corpuscular Volume 89.5 fL (80-100) Mean Corpuscular Hemoglobin 29.8 pg (27.0-33.0) Mean Corpuscular Hemoglobin Concent 33.3 g/dL (32.0-36.0) Red Cell Distribution Width 12.2 % (11.0-15.5) Platelet Count 386 K/uL (130-400) Mean Platelet Volume 10.0 fL (7.5-10.5) Immature Granulocyte % (Auto) 0.3 % (0-1) Neutrophils (%) (Auto) 72.1 % (40.0-77.0) Lymphocytes (%) (Auto) 21.0 % (21.0-51.0) Monocytes (%) (Auto) 4.9 % (3.0-13.0) Eosinophils (%) (Auto) 1.2 % (0.0-8.0) Basophils (%) (Auto) 0.5 % (0.0-5.0) Neutrophils # (Auto) 11.8 K/uL (1.8-7.7) H Lymphocytes # (Auto) 3.5 K/uL (1.0-4.8) Monocytes # (Auto) 0.8 K/uL (0.1-1.0) Eosinophils # (Auto) 0.20 K/uL (0.00-0.70) Basophils # (Auto) 0.08 K/uL (0.00-0.20) Absolute Immature Granulocyte (auto 0.05 K/uL (0-1) Nucleated Red Blood Cells 0.0 % (0.0-0.19) Sodium Level 140 mmol/L (136-145) Potassium Level 4.1 mmol/L (3.5-5.1) Chloride Level 102 mmol/L (101-111) Carbon Dioxide Level 30 mmol/L (21-32) Blood Urea Nitrogen 12 mg/dL (7-18) Creatinine 0.7 mg/dL (0.5-1.0) Glomerular Filtration Rate Calc 127 mL/min (>90) Random Glucose 87 mg/dL (70-105) Total Calcium 9.3 mg/dL (8.5-10.1) Lipase 36 U/L (16-77) Urine Color YELLOW (YELLOW) Urine Appearance CLOUDY (CLEAR) H Urine pH 6.0 (5.0-8.0) Urine Specific [place] 1.045 (1.001-1.031) Urine Protein 30 mg/dL (NEGATIVE) H Urine Glucose (UA) NEGATIVE mg/dL (NEGATIVE) Urine Ketones NEGATIVE mg/dL (NEGATIVE) Urine Occult Blood NEGATIVE (NEGATIVE) Urine Nitrate NEGATIVE (NEGATIVE) Urine Bilirubin NEGATIVE mg/dL (NEGATIVE) Urine Urobilinogen 2.0 mg/dL (0.2-1.0) H Urine Leukocyte Esterase 500 Ellen/uL (NEGATIVE) H Urine RBC 11-25 /HPF (0-1) H Urine WBC 51-100 /HPF (0-1) H Urine Squamous Epithelial Cells FEW /HPF (0-2) Urine Other Crystals (Auto) 2 /HPF (None Seen) Urine Bacteria RARE /HPF (None Seen) Urine HCG, Qualitative NEGATIVE (NEGATIVE) PATIENT: ELIANE LADD MR#: [id number] : 2005 SEX: F AGE: 19 LOCATION: [facility] ORDER 36 STATUS: [facility] REPORT#: [id number] SERVICE [id number] REASON: Abdominal Pain ORDERING PHYSICIAN: NITA MERINO NP PROCEDURE: ABD PEL W - CT ABDOMEN/PELVIS W/CONTRAST EXAM: CT Abdomen and Pelvis with IV contrast CLINICAL HISTORY: Abdominal Pain TECHNIQUE: Axial computed tomography images of the abdomen and pelvis with intravenous contrast. CONTRAST: with intravenous contrast. COMPARISON: None provided. FINDINGS: LUNG BASES: The lung bases appear clear. No pleural effusions are seen. LIVER: Unremarkable. GALLBLADDER AND BILE DUCTS: The gallbladder appears within normal limits. No radioopaque gallstones are seen. No biliary ductal dilatation is evident. PANCREAS: Unremarkable. SPLEEN: Unremarkable. ADRENAL GLANDS: Unremarkable. KIDNEYS, URETERS, AND BLADDER: The kidneys appear within normal limits. There is no hydronephrosis or hydroureter. No urinary calculi are seen. STOMACH AND BOWEL: Unremarkable appearance of the stomach and bowel. No evidence of bowel obstruction. No evidence suggesting enteritis or colitis. APPENDIX: No evidence of acute appendicitis on CT examination. PERITONEUM: No free fluid. No free air. LYMPH NODES: No lymphadenopathy is evident. REPRODUCTIVE: Unremarkable as visualized. VASCULATURE: No evidence of abdominal aortic aneurysm. BONES: No aggressive appearing osseous lesion. No acute osseous pathology evident. IMPRESSION: No acute intra-abdominal or pelvic abnormality. /[place] EXAM: US Pelvis, Complete. CLINICAL HISTORY: Pelvic pain (LLQ). TECHNIQUE: Limited transabdominal pelvic ultrasound performed with grayscale and Doppler evaluation. COMPARISON: None provided. FINDINGS: ENDOMETRIUM: Thin endometrium, measuring 3 mm. UTERUS/CERVIX: Normal size and contour, measuring 7.4 x 3.8 x 3.5 cm. Homogeneous myometrium. No focal uterine mass seen. RIGHT OVARY: Normal size, measuring 3.0 x 1.6 x 3.4 cm. Normal vascular flow demonstrated. No adnexal mass or cyst identified. LEFT OVARY: Normal size, measuring 2.2 x 1.6 x 2.5 cm. Normal vascular flow demonstrated. No adnexal mass or cyst identified. FREE FLUID: No free fluid visualized in the cul-de-sac. IMPRESSION: 1. No acute findings. /[place] Labs Reviewed?: Yes ED Course ED Course Orders Procedure Category Date Status Time Cbc With Differential LAB 05/30/25 Complete 15:45 ,Urine Test LAB 05/30/25 Complete 15:45 Urinalysis Profile LAB 05/30/25 Complete 15:45 Lipase LAB 05/30/25 Complete 15:45 Basic Metabolic Panel LAB 05/30/25 Complete 15:45 Culture Urine MICKI 05/30/25 In Process 17:22 Ct Abdomen/Pelvis CT 05/30/25 Resulted W/Contrast 17:35 0.9%Nacl 1000ml (Ns PHA 05/30/25 Complete 1000ml) 18:00 Morphine 2mg Syg PHA 05/30/25 Complete (Morphine 2mg Syg) 18:00 Ondansetron 4mg Inj PHA 05/30/25 Complete (Zofran 4mg Inj) 18:00 Ceftriaxone 1g Vial PHA 05/30/25 Complete (Rocephine 1g Inj) 18:00 Iohexol (Omnipaque) PHA 05/30/25 Complete 19:53 Us Pelvic Non-Ob US 05/30/25 Resulted Limited 20:58 Current Medications Medications (Trade) Dose Ordered Sig/Karissa Route PRN Reason Start Time Stop Time Status Last Admin Dose Admin Ceftriaxone Sodium (ROCEphine 1G INJ) 1 gm ONCE ONCE IVPB 05/30/25 18:00 05/30/25 18:01 DC 05/30/25 19:24 Iohexol (Omnipaque) 75 ml STK-MED ONCE IV 05/30/25 19:53 05/30/25 19:53 DC Morphine Sulfate (morPHINE 2MG SYG) 2 mg ONCE ONCE IVP 05/30/25 18:00 05/30/25 18:01 DC 05/30/25 19:24 Ondansetron HCl (zoFRAN 4MG INJ) 4 mg ONCE ONCE IVP 05/30/25 18:00 05/30/25 18:01 DC 05/30/25 19:23 Sodium Chloride 1,000 ml @ 0 mls/hr ONCE ONCE IV 05/30/25 18:00 05/30/25 18:01 DC 05/30/25 19:23 Vital Signs Date Time Temp Pulse Resp B/P (MAP) Pulse Ox O2 Delivery O2 Flow Rate FiO2 05/30/25 15:41 97.9 98 18 131/71 97 Room Air 0 2155/PATIENT STATES PAIN IS 1/10 AT THIS TIME. SHE IS AWARE THAT THERE IS NO TORSION NO APPENDICITIS NO HERNIA. N ACUTE CYSTITIS WITH HEMATURIA AND FOLLOW UP WITH YOUR PRIMARY CARE DOCTOR. Medical Decision Making MDM MDM: DIFFERENTIAL DIAGNOSIS: ECTOPIC /HEMORRHAGIC CYST/TUBO OVARIAN ABSCESS/APPENDICITIS/DIVERTICULITIS/HERNIA/UTI RATIONALE: TESTS CONSIDERED AND ORDERED SECONDARY TO SHARED DECISION MAKING INCLUDE: LABS/RADIOLOGY PREVIOUS OUTSIDE RECORDS REVIEWED: OLD ER VISITS. RISK OF COMPLICATION AND/OR MORBIDITY OR MORTALITY OF PATIENT MANAGEMENT: NONE MEDICATIONS-PER MEDICATION RECONCILIATION NEED FOR HOSPITALIZATION: PATIENT DOES NOT MEET CRITERIA FOR HOSPITALIZATION. NONE NEED FOR EMERGENCY MAJOR/MINOR SURGERY: NO THERE ARE NO SOCIAL CONCERNS WITH THIS PATIENT. PRESCRIPTION DRUG MANAGEMENT IBUPROFEN PRESCRIPTIONS WILL INCLUDE SYMPTOMATIC CARE PATIENT'S PRIOR EXTERNAL MEDICAL RECORDS FROM OTHER ER VISITS WERE REVIEWED BY ME INDICATED. PRIOR TESTING AND RESULTS FROM PREVIOUS VISITS WERE REVIEWED. PRIOR TESTS WERE TAKEN INTO ACCOUNT WITH MEDICAL DECISION MAKING AND RESOURCE UTILIZATION, INDEPENDENT HISTORIAN/HISTORIANS WERE USED TO OBTAIN COMPLETE MEDICAL HISTORY. I INDEPENDENTLY INTERPRETED THE TEST THAT WERE PERFORMED, RESULTS WERE REVIEWED BY ME AND CONSIDERED FINDINGS ON RADIOLOGY IF ORDERED. MEDICAL MANAGEMENT AND EXAMINATION INTERPRETATION DISCUSSIONS WERE HAD BY ME WIT H OTHER QUALIFIED HEALTHCARE PROFESSIONALS INDICATED FOR THE PATIENT'S CARE. DX & DISP Disposition: Discharge Departure Impression: Primary Impression: Pelvic pain in female Additional Impressions: Leukocytosis, Acute cystitis with hematuria Condition: Stable Scripts Phenazopyridine HCl (Pyridium) 200 Mg Tablet 200 MG PO TID for painful urination for 3 Days, #9 TAB 0 Refills Prov: NITA MERINO E BUSINESS SPECIALIST 05/30/25 Amoxicillin/Potassium Clav (Amox Tr-K Clv 875-125 mg Tab) 875 Mg-125 Mg Tablet 1 EACH PO BID for 5 Days, #10 TAB 0 Refills Prov: NITA MERINO E BUSINESS SPECIALIST 05/30/25 Ibuprofen (Ibuprofen 800 mg Tab) 800 Mg Tab 800 MG PO Q8H PRN for fever or pain, #30 TAB 0 Refills Prov: NITA MERINO E BUSINESS SPECIALIST 05/30/25 Additional Instructions: FOLLOW-UP WITH PRIMARY CARE PROVIDER IN 1 TO 2 DAYS. TAKE MEDICATIONS DIRECTED HERE IN THE EMERGENCY ROOM. OKAY TO CONTINUE HOME MEDICATIONS UNLESS OTHERWISE DISCUSSED DURING YOUR VISIT IN THE EMERGENCY ROOM TODAY. RETURN TO YOUR NEAREST EMERGENCY ROOM IF SYMPTOMS WORSEN OR IF THERE IS NO IMPROVEMENT. CALL 911 IF YOU NEED IMMEDIATE ASSISTANCE. TAKE TYLENOL OR MOTRIN [id number] NEEDED AND IF NO CONTRAINDICATIONS ARE PRESENT. INCREASE ORAL HYDRATION. A WOUND CULTURE OR URINE CULTURE WAS ORDERED HERE IN THE EMERGENCY ROOM DEPARTMENT PLEASE FOLLOW-UP WITH PRIMARY CARE PROVIDER AND ADVISE THEM TO GET REPEAT PORTS FROM OUR FACILITY. IF YOU HAD ANY LAMBERT WRAP/SPLINTS THAT WERE APPLIED HERE, PLEASE DO NOT REMOVE THEM UNTIL YOU SEE YOUR PRIMARY CARE OR SPECIALTY. TAKE ANTIBIOTICS DIRECTED UNTIL GONE. REMEMBER THE PYRIDIUM WILL TURN YOUR URINE ORANGE RED. INCREASE YOUR WATER INTAKE. SEE YOUR PRIMARY CARE DOCTOR FOR FOLLOW UP AND MANAGEMENT Referrals: FEI EDWARDS (PCP) Time of Disposition: 21:58 I have reviewed the case, and I agree with, Diagnosis and Plan NITA MERINO NP May 30, 2025 15:47
[2025-05-30 16:21] LABS: IMMATURE GRANULOCYTE ABSOLUTE 0.05 K/uL (0-1); NUCLEATED RED BLOOD CELLS 0.0 % (0.0-0.19); PLATELET COUNT (AUTO) 386 K/uL (130-400); RED BLOOD CELL COUNT(AUTO) 4.86 MIL/uL (4.00-5.50); RED CELL DISTRIBUTION WIDTH 12.2 % (11.0-15.5); WHITE BLOOD COUNT (AUTO) 16.4 K/uL (4.8-10.8)
[2025-05-30 16:31] LABS: CREATININE 0.7 mg/dL (0.5-1.0); GLOMERULAR FILTR. RATE CALC 127.0 mL/min (>90); GLUCOSE,RANDOM 87.0 mg/dL (70-105); SODIUM SERUM 140.0 mmol/L (136-145); UREA NITROGEN, BLOOD 12.0 mg/dL (7-18)
[2025-05-30 17:21] LABS: APPEARANCE,URINE CLOUDY (CLEAR); GLUCOSE, URINE (UA) NEGATIVE (NEGATIVE); LEUKOCYTE ESTERASE ,URINE 500 Leu/uL (NEGATIVE); NITRATE,URINE NEGATIVE (NEGATIVE); OCCULT BLOOD,URINE NEGATIVE (NEGATIVE)
[2025-05-30 17:22] LABS: ADD UA MICROSCOPIC YES
[2025-05-30 17:24] LABS: HCG,QUALITATIVE URINE NEGATIVE (NEGATIVE)
[2025-05-30 17:26] LABS: SQUAMOUS EPITHELIAL CELL,UR FEW /HPF (0-2); UNCLASSIFIED CRYSTAL 2 /HPF (None Seen)
--- NOTE | 2025-05-30 18:54 | NUR ---
PT MOVED FROM LOBBY INTO FAST TRACK AT THIS TIME
[2025-05-30] MEDS: 0.9%NACL 1000ML 1,000 ML IV ONE (19:23)
--- NOTE | 2025-05-30 19:38 | NUR ---
IV CONTRAST CONSENT SIGNED BY PATIENT.
[2025-05-30] MEDS ORDERED: IOHEXOL-350 75 ML VIAL IV ONE (19:53)
--- NOTE | 2025-05-30 20:54 | HMCIMG ---
EXAM: CT Abdomen and Pelvis with IV contrast CLINICAL HISTORY: Abdominal Pain TECHNIQUE: Axial computed tomography images of the abdomen and pelvis with intravenous contrast. CONTRAST: with intravenous contrast. COMPARISON: None provided. FINDINGS: LUNG BASES: The lung bases appear clear. No pleural effusions are seen. LIVER: Unremarkable. GALLBLADDER AND BILE DUCTS: The gallbladder appears within normal limits. No radioopaque gallstones are seen. No biliary ductal dilatation is evident. PANCREAS: Unremarkable. SPLEEN: Unremarkable. ADRENAL GLANDS: Unremarkable. KIDNEYS, URETERS, AND BLADDER: The kidneys appear within normal limits. There is no hydronephrosis or hydroureter. No urinary calculi are seen. STOMACH AND BOWEL: Unremarkable appearance of the stomach and bowel. No evidence of bowel obstruction. No evidence suggesting enteritis or colitis. APPENDIX: No evidence of acute appendicitis on CT examination. PERITONEUM: No free fluid. No free air. LYMPH NODES: No lymphadenopathy is evident. REPRODUCTIVE: Unremarkable as visualized. VASCULATURE: No evidence of abdominal aortic aneurysm. BONES: No aggressive appearing osseous lesion. No acute osseous pathology evident. IMPRESSION: No acute intra-abdominal or pelvic abnormality. /[place]
--- NOTE | 2025-05-30 21:16 | NUR ---
PATIENT AT ULTRASOUND AT THIS TIME.
--- NOTE | 2025-05-30 21:43 | HMCIMG ---
EXAM: US Pelvis, Complete. CLINICAL HISTORY: Pelvic pain (LLQ). TECHNIQUE: Limited transabdominal pelvic ultrasound performed with grayscale and Doppler evaluation. COMPARISON: None provided. FINDINGS: ENDOMETRIUM: Thin endometrium, measuring 3 mm. UTERUS/CERVIX: Normal size and contour, measuring 7.4 x 3.8 x 3.5 cm. Homogeneous myometrium. No focal uterine mass seen. RIGHT OVARY: Normal size, measuring 3.0 x 1.6 x 3.4 cm. Normal vascular flow demonstrated. No adnexal mass or cyst identified. LEFT OVARY: Normal size, measuring 2.2 x 1.6 x 2.5 cm. Normal vascular flow demonstrated. No adnexal mass or cyst identified. FREE FLUID: No free fluid visualized in the cul-de-sac. IMPRESSION: 1. No acute findings. /[place]
[2025-05-30] MEDS ORDERED: PHEN-776 PO (22:00)
[2025-05-30 22:18] VITALS: BP 124/74; PULSE 76; RESP 18; TEMP 98.3; O2SAT 98
== END 2025-05-30 22:18 | disposition home or self-care (01) ==
LOC: EDH 15:38
DX: R10.2 Pelvic and perineal pain (principal); D72.829 Elevated white blood cell count, unspecified; N30.01 Acute cystitis with hematuria; Z79.1 Long term (current) use of non-steroidal anti-inflammatories (NSAID); Z90.89 Acquired absence of other organs
CPT/HCPCS: 99285; 74177; 96365; 76857; 96375; 80048; 83690; 85025; 87086; 81001; 81025; 36415; J2270; J7030; J0696; J2405; Q9967

== ENCOUNTER 2025-07-09 21:20 | Emergency (ER) | payer BC ==
[~2025-07-09] VITALS: Ht 167.6 cm; Wt 115.2 kg
[~2025-07-09 21:20] MED LIST changes: +PHEN-776 PO
[2025-07-09 21:45] LABS: RAPID GROUP A STREP negative (NEGATIVE)
[2025-07-09 21:55] LABS: INFLUENZA TYPE A Negative For Type A (NEGATIVE); INFLUENZA TYPE B Negative For Type B (NEGATIVE)
[2025-07-09 22:18] LABS: SARS-CoV-2, RNA, NAAT NEGATIVE SARS CoV-2 (NEGATIVE)
--- NOTE | 2025-07-09 23:21 | HMCIMG ---
EXAM: CR Chest, 1 view. CLINICAL HISTORY: Shortness of breath. COMPARISON: None. FINDINGS: The lungs show no infiltration or other acute findings. No pleural effusion or pneumothorax. The cardio mediastinal silhouette is within normal limits. No acute osseous abnormality. IMPRESSION: No acute cardiopulmonary pathology is evident. /[place]
--- NOTE | 2025-07-09 23:32 | ERN ---
ED Note History of Present Illness Stated Complaint: C/O SORE THROAT,COUGH, NAUSEA, PHLEM X 2 DAYS Chief Complaint: Sore Throat Time Seen by MD: 21:28 Time Seen by Midlevel: 21:28 Dictation: The patient is a 20-year old female with no past medical history who presents to the emergency department with complains of sore throat, productive clear cough, and bilateral ear pain onset 2 days ago. Reports fevers. Reports patients has the same symptoms. Allergies: Coded Allergies: No Known Drug Allergies (Unverified Allergy, Unknown, 02/26/19) Home Meds Active Scripts Phenazopyridine HCl (Pyridium) 200 Mg Tablet, 200 MG PO TID for painful urination for 3 Days, #9 TAB 0 Refills Prov:NITA MERINO PIPELINES SUPERINTENDENT 05/30/25 Amoxicillin/Potassium Clav (Amox Tr-K Clv 875-125 mg Tab) 875 Mg-125 Mg Tablet, 1 EACH PO BID for 5 Days, #10 TAB 0 Refills Prov:NITA MERINO PIPELINES SUPERINTENDENT 05/30/25 Ibuprofen (Ibuprofen 800 mg Tab) 800 Mg Tab, 800 MG PO Q8H PRN for fever or pain, #30 TAB 0 Refills Prov:NITA MERINO PIPELINES SUPERINTENDENT 05/30/25 Ondansetron (Ondansetron Odt) 4 Mg Tab.rapdis, 4 MG PO Q6HPRN PRN for nausea, #16 TAB 0 Refills Prov:LILLIAN SEQUEIRA PIPELINES SUPERINTENDENT 07/20/24 Amoxicillin/Potassium Clav (Amox Tr-K Clv 875-125 mg Tab) 875 Mg-125 Mg Tablet, 1 TAB PO BID for 5 Days, #10 TAB 0 Refills Prov:LILLIAN SEQUEIRA PIPELINES SUPERINTENDENT 07/20/24 Ibuprofen (Ibuprofen 800 mg Tab) 800 Mg Tab, 800 MG PO Q8H PRN for fever or p ain, #30 TAB 0 Refills Prov:NITA MERINO PIPELINES SUPERINTENDENT 04/04/24 Phenazopyridine HCl (Pyridium) 200 Mg Tab, 200 MG PO TIDPC, #9 TAB TAKE WITH FOOD TO PREVENT STOMACH UPSET. Prov:NITA MERINO PIPELINES SUPERINTENDENT 04/04/24 Amoxicillin/Potassium Clav (Amox Tr-K Clv 875-125 mg Tab) 875 Mg-125 Mg Tablet, 1 EACH PO BID for 5 Days, #10 TAB 0 Refills Prov:NITA MERINO PIPELINES SUPERINTENDENT 04/04/24 Methylprednisolone (Medrol) 4 Mg Tab.ds.pk, 4 MG PO AD, #1 PACK Prov:EDDIE VILCHIS PAC 02/23/24 Famotidine (Pepcid) 20 Mg Tablet, 20 MG PO DAILY for 7 Days, #7 TAB Prov:EDDIE VILCHIS PAC 24 Diphenhydramine HCl (Benadryl) 25 Mg Cap, 25 MG PO DAILY for 7 Days, #7 CAP Prov:EDDIE VILCHIS PAC 24 Ibuprofen (Motrin/Advil) 800 Mg Tab, 800 MG PO TID for fever, #30 TAB Prov:RAY SAN MD 03/23/22 Past Medical History Past Medical History: No Pertinent History Surgical History: None Family History: Negative Social History: Negative : 0 RN Note Reviewed/Agreed w/PFSH: Yes Review of System Dictation Constitutional: Negative for fever,chills, and weight loss Eyes: Negative for injury, pain,redness, and discharge ENT: Negative for injury or swelling positive for sore throat, ear pain Cardiovascular: Negative for chest pain, palpitations, and edema Respiratory: Negative for shortness of breath, and wheezing, positive for cough Abdomen/GI: Negative for abdominal pain, nausea, vomiting, diarrhea, and constipation Back: Negative for injury and pain : Negative for injury, bleeding and discharge MS/Extremity: Negative for injury and deformity Skin: Negative for rash, and discoloration Neuro: Negative for headache, weakness, numbness, tingling, and seizure Psych: Negative for suicide ideation, homicidal ideation, and hallucinations Initial Vital Sign VS Vital Signs Date Time Temp Pulse Resp B/P (MAP) Pulse Ox O2 Delivery O2 Flow Rate FiO2 07/09/25 21:21 98.2 100 20 142/74 99 Room Air 07/09/25 21:37 0 21 Physical Exam Dictation Vital Signs reviewed General Appearance: Alert, oriented x 3, no acute distress, well developed, nourished. Head and Face: non-traumatic. Eyes: PERRL, pink conjunctivas, eyelid no trauma, anterior chamber with arcus senilis. Ears: Pinnas intact and no signs of trauma or erythema ear canals clear and no discharge TM no erythema Nose: No discharge, no bleeding. Oropharynx: Mouth normal, tongue pink. pharynx clear,no erythema, tonsils no exudates, no abscesses noted, mucous membrane moist Neck: Supple, non-tender, no thyromegaly, no masses, no JVD, no bruits Breast:Deferred Chest:No tenderness, no crepitus, no paradoxical movement, no retractions Lungs:Clear, well-ventilated, symmetric, no rales, no wheezing, no rhonchi, no stridor, good breath sounds bilaterally Heart: Regular rate, regular rhythm, no murmur, no gallops Vascular: no peripheral edema, Abdomen: Soft, positive bowel sounds, nondistended, no guarding, nontender, no rebound, no masses no hepatomegaly, no splenomegaly, no Guillermo's sign, no hernias. Rectal: Deferred Genital: Deferred Neurological: Normal speech, motor function intact, sensory function intact Musculoskeletal: Neck nontender, full range of motion, back nontender, full range of motion, Extremities: nontender, full range of motion Skin: Color pink, dry, no turgor, no rash, no lacerations, no abrasions, no contusions. Lymphatic: Deferred Results (Laboratory/Radiology) Laboratory/Radiology Laboratory Tests Test 07/09/25 21:26 07/09/25 22:09 Influenza Type A Antigen Negative For Type A Influenza Type B Antigen Negative For Type B SARS-CoV-2, RNA, NAAT NEGATIVE SARS CoV-2 Group A Streptococcus Rapid negative (NEGATIVE) Urine HCG, Qualitative NEGATIVE (NEGATIVE) REASON: sob ORDERING PHYSICIAN: LILLIAN SEQUEIRA PIPELINES SUPERINTENDENT PROCEDURE: CXR1VW - CHEST 1VW EXAM: CR Chest, 1 view. CLINICAL HISTORY: Shortness of breath. COMPARISON: None. FINDINGS: The lungs show no infiltration or other acute findings. No pleural effusion or pneumothorax. The cardio mediastinal silhouette is within normal limits. No acute osseous abnormality. IMPRESSION: No acute cardiopulmonary pathology is evident. /[place] Labs Reviewed?: Yes ED Course ED Course Orders Procedure Category Date Status Time Covid Rna Naat LAB 07/09/25 Complete 21: Influenza Type A & B, LAB 07/09/25 Complete Rapid 21:26 Rapid (Group A Strep) LAB 07/09/25 Complete 21:26 Chest 1vw RAD 07/09/25 Resulted 21:36 ,Urine Test LAB 07/09/25 Complete 21:36 Acetaminophen 500mg PHA 07/09/25 Complete Tab (Tylenol 500mg T 22:00 Current Medications Medications (Trade) Dose Ordered Sig/Karissa Route PRN Reason Start Time Stop Time Status Last Admin Dose Admin Acetaminophen (TYLenol 500MG TAB) 1,000 mg ONCE ONCE PO 07/09/25 22:00 07/09/25 22:01 DC Vital Signs Date Time Temp Pulse Resp B/P (MAP) Pulse Ox O2 Delivery O2 Flow Rate FiO2 07/09/25 23:39 98.1 96 20 132/68 98 Room Air* 0 21 07/09/25 21:37 98.2 100 18 142/76 99 Room Air* 0 21 07/09/25 21:21 98.2 100 20 142/74 99 Room Air Medical Decision Making MDM The patient is a 20-year old female with no past medical history who presents to the emergency department with complains of sore throat, productive clear cough, and bilateral ear pain onset 2 days ago. Reports fevers. Reports patients has the same symptoms. Serology was negative. X-ray showed no acute infiltrates. On physical exam patient is in no acute distress, nontoxic appearance, clear lung sounds, no swelling to throat patient will be discharged to follow up with the PCP. Differential diagnosis: URI, pneumonia, strep throat. Need for hospitalization: Patient does not meet criteria for hospitalization. There are no social concerns with this patient. DX & DISP Disposition: Discharge Departure Impression: Primary Impression: Viral URI with cough Condition: Stable Additional Instructions: your xray was normal. Please follow up with PCP in 1-2 days FOLLOW-UP WITH PRIMARY CARE PROVIDER IN 1 TO 2 DAYS. TAKE MEDICATIONS DIRECTED HERE IN THE EMERGENCY ROOM. OKAY TO CONTINUE HOME MEDICATIONS UNLESS OTHERWISE DISCUSSED DURING YOUR VISIT IN THE EMERGENCY ROOM TODAY. RETURN TO YOUR NEAREST EMERGENCY ROOM IF SYMPTOMS WORSEN OR IF THERE IS NO IMPROVEMENT. CALL 911 IF YOU NEED IMMEDIATE ASSISTANCE. TAKE TYLENOL [id number] NEEDED AND IF NO CONTRAINDICATIONS ARE PRESENT. INCREASE ORAL HYDRATION. A WOUND CULTURE OR URINE CULTURE WAS ORDERED HERE IN THE EMERGENCY ROOM DEPARTMENT PLEASE FOLLOW-UP WITH PRIMARY CARE PROVIDER AND ADVISE THEM TO GET REPEAT PORTS FROM OUR FACILITY. IF YOU HAD ANY LAMBERT WRAP/SPLINTS THAT WERE APPLIED HERE, PLEASE DO NOT REMOVE THEM UNTIL YOU SEE YOUR PRIMARY CARE OR SPECIALTY. Referrals: Chantale ISRAEL MD (PCP) Time of Disposition: 23:32 I have reviewed the case, and I agree with, Diagnosis and Plan I performed a substantive portion of the visit. I have reviewed and personally made and approve the management plan that is documented in the notes by myself with KANE/resident. I acknowledged full responsibility for the patient's cindy gement plan. LILLIAN SEQUEIRA Jul 09, 2025 23:32 ENEDELIA BARAJAS DO Jul 10, 2025 01:08
[2025-07-09 23:39] VITALS: BP 132/68; PULSE 96; RESP 20; TEMP 98.1; O2SAT 98
== END 2025-07-09 23:41 | disposition home or self-care (01) ==
LOC: EDH 21:20
DX: J06.9 Acute upper respiratory infection, unspecified (principal); B97.89 Other viral agents as the cause of diseases classified elsewhere; Z20.822 Contact with and (suspected) exposure to COVID-19; Z79.1 Long term (current) use of non-steroidal anti-inflammatories (NSAID)
CPT/HCPCS: 71045; 81025; 87635; 87804; 87880; 99283